=== PATIENT | female | born 1995 | race Caucasian/White ===

== ENCOUNTER 2022-02-10 09:33 | Emergency (ER) | payer MEDICAID ==
[~2022-02-10] VITALS: Ht 165.1 cm; Wt 79.4 kg
[2022-02-10 09:33] VITALS: BP_SYST 122
--- NOTE | 2022-02-10 09:33 | NUR ---
BROUGHT BACK TO BED #5 AND TRAIGD. REPORT GIVEN TO ANA MARÍA/BRENDA
--- NOTE | 2022-02-10 09:45 | NUR ---
Assumed care of patient who came from home c/o abdominal cramping. Patient states she tested positive for and believes herself to be approximately 12 weeks gestation. Patient is A&Ox4, calm and cooperative. She is resting on gurney in no acute distress.
--- NOTE | 2022-02-10 09:51 | NUR ---
DR LEA AT BEDSIDE FOR EVALUATION
[2022-02-10 10:20] LABS: BASOPHILS % (AUTO) 0.7 % (0.0-2.0); EOSINOPHILS % (AUTO) 0.7 % (0.0-4.0); HEMATOCRIT 39.4 % (36-48); HEMOGLOBIN 13.8 g/dL (12.0-16.0); LYMPHOCYTES # (AUTO) 1.7 K/uL (1.0-5.5); LYMPHOCYTES % (AUTO) 29.3 % (20.5-51.5); MEAN CORPUSCULAR HEMOGLOBIN 30 pg (27-31); MEAN CORPUSCULAR HGB CONC 35 % (32-36); MEAN CORPUSCULAR VOLUME 86 fL (79.0-98.0); MONOCYTES # (AUTO) 0.4 K/uL (0.0-1.0); MONOCYTES % (AUTO) 7.3 % (1.7-9.3); NEUTROPHILS # (AUTO) 3.6 K/uL (1.8-7.7); PLATELET COUNT (AUTO) 234 K/uL (130-430); RED CELL DISTRIBUTION WIDTH 13.2 % (9.0-15.0); WHITE BLOOD COUNT (AUTO) 5.8 K/uL (4.8-10.8)
[2022-02-10 10:40] LABS: CALCIUM 8.1 mg/dL (8.4-11.0); CREATININE 0.7 mg/dL (0.55-1.30); POTASSIUM 3.5 mmol/L (3.5-5.1)
[2022-02-10 10:41] LABS: BILIRUBIN,URINE NEGATIVE (NEGATIVE); BLOOD, URINE NEGATIVE (NEGATIVE); CLARITY/URINE CLEAR (CLEAR); COLOR,URINE YELLOW (YELLOW); GLUCOSE,URINE NEGATIVE (NEGATIVE); KETONES,URINE NEGATIVE (NEGATIVE); LEUKOCYTE ESTERASE ,URINE NEGATIVE (NEGATIVE); NITRITE, URINE NEGATIVE (NEGATIVE); PH,URINE 5.5 (5.0-8.0); PROTEIN URINE NEGATIVE (NEGATIVE); UROBILINOGEN,URINE 0.2 (0.2-1.0)
[2022-02-10 11:11] LABS: ALBUMIN 3.5 g/dL (3.4-4.8); TOTAL BILIRUBIN 0.2 mg/dL (0.0-1.0)
--- NOTE | 2022-02-10 11:30 | NUR ---
ULTRASOUND AT THE BEDSIDE
--- NOTE | 2022-02-10 12:41 | NUR ---
DR LEA SPEAKING WITH PT REGARDING TEST RESULTS.
[2022-02-10 12:50] VITALS: BP_SYST 117
--- NOTE | 2022-02-10 12:50 | NUR ---
Patient given written and verbal discharge instructions and verbalizes understanding. ER MD discussed with patient the results and treatment provided. Patient in stable condition. ID arm band removed. NO Rx given. Patient educated on pain management and to follow up with PMD. Pain Scale 0/10. Opportunity for questions provided and answered. Medication side effect fact sheet provided.
== END 2022-02-10 12:50 | disposition home or self-care (01) ==
LOC: SED 09:33
DX: O26.93 Pregnancy related conditions, unspecified, third trimester (principal); R10.30 Lower abdominal pain, unspecified; K08.89 Other specified disorders of teeth and supporting structures; Z3A.01 Less than 8 weeks gestation of pregnancy
CPT/HCPCS: 36415; 76801; 76817; 80053; 81003; 81025; 82150; 83690; 84702; 85025; 99284

== ENCOUNTER 2022-02-13 15:11 | Emergency (ER) | payer MEDICAID ==
[~2022-02-13] VITALS: Ht 165.1 cm; Wt 79.4 kg
[2022-02-13 15:11] VITALS: BP_SYST 132
[2022-02-13] MEDS ORDERED: PENI250T2 PO (15:21)
== END 2022-02-13 15:25 | disposition home or self-care (01) ==
LOC: SED 15:11
DX: K08.89 Other specified disorders of teeth and supporting structures (principal)
CPT/HCPCS: 99283